=== PATIENT | female | born 1935 | race Caucasian/White ===

== ENCOUNTER 2021-02-27 16:49 | Emergency (ER) | payer MEDICARE, OTHER ==
--- NOTE | 2021-02-27 20:51 | CR ---
INDICATION: Pain in the ankle after near fall. COMPARISON: None available. FINDINGS: AP, lateral and oblique views of the left ankle were obtained for a total of three views. There is no sign of fracture or dislocation. The ankle mortise is intact. The talar dome is intact. There is no sign of a joint effusion. There is moderate medial and lateral soft tissue swelling along with mild anterior soft tissue swelling. There is a moderate plantar calcaneal spur. IMPRESSION: No sign of acute osseous injury. Moderate medial and lateral soft tissue swelling, along with mild anterior soft tissue swelling. Dictated by Jovan Hyde MD @ 02/27/2021 8:50:06 PM (Electronically Signed)
[2021-02-27] MEDS ORDERED: Sodium Chloride 0.9% 1,000 ML IV ONE (20:52)
[2021-02-27] MEDS ORDERED: Sodium Chloride 0.9% 10 ML Syringe FLUSH PRN (20:52)
[2021-02-27] MEDS ORDERED: Sodium Chloride 0.9% 2.5 ML Syringe FLUSH PRN (20:52)
--- NOTE | 2021-02-27 20:53 | EDM.PDOC ---
ED HPI GENERAL MEDICAL PROBLEM - General Chief Complaint: Lower Extremity Injury/Pain Stated Complaint: FALL YESTERDAY, ANKLE SWOLLEN Time Seen by Provider: 02/27/21 20:46 - History of Present Illness INITIAL COMMENTS - FREE TEXT/NARRATIVE: History of present illness: [] Patient had abdominal pain and felt sick at her stomach yesterday. She said she ate well. Today her appetite was gone and she did not eat hardly at all. Yesterday she fell and twisted her left ankle and has pain. Today she was so weak that her family had to come and help her get up. She did not have any focal weakness. She still felt a little indigestion and abdominal pain. When she fell yesterday she injured her ankle. She incidentally notes that for chronic time she has a feeling of a bone spur in her heel on the right. She did not want that addressed acutely tonight. Review of systems: As per history of present illness and below otherwise all systems reviewed and negative. Past medical history: As per history of present illness and as reviewed below otherwise noncontributory. Surgical history: As per history of present illness and as reviewed below otherwise noncontributory. Social history: No reported history of drug or alcohol abuse. Family history: As per history of present illness and as reviewed below otherwise noncontributory. Physical exam: Constitutional - well developed, well-nourished and in no acute distress HEENT - normocephalic, no evidence of trauma - external nose and mouth normal - no mass in neck and no JVD - mucosae moist EYES - full EOM, PERRL, no icterus - no evidence of inflammation, injection, or drainage Respiratory - no respiratory distress, equal bilateral expansion, lungs clear to auscultation and no abnormal lung sounds Cardiovascular - Regular Rhythm with S1 and S2 appreciated and no murmur, gallop or rub. GI - abdomen soft without distension or organomegaly - normal bowel sounds - no guard or rebound Musculoskeletal tenderness medial and lateral ankle on the left side. Otherwise no gross deformity of long bones or joints - no tenderness, swelling or edema Neurologic - Alert and oriented times four - CN II-XII grossly intact - motor sensory and coordination symmetrically normal Psychiatric - appropriate mood and affect with normal thought content Hematologic - No petechiae or purpura - mucosa appropriate color and sclera not pale - normal nail bed color and refill Integument - no rash or evidence of trauma - normal turgor Diagnostics: [] Therapeutics: [] Impression: [] Plan: [] Definitive disposition and diagnosis as appropriate pending reevaluation and review of above. Right Ankle Pain Score (Numeric/FACES): 9 - Related Data Allergies Allergy/AdvReac Type Severity Reaction Status Date / Time No Known Allergies Allergy Verified 02/27/21 17:02 Home Meds: Home Meds Aspirin 81 mg PO 02/27/21 [History] Diltiazem HCl [Diltiazem 24Hr Cd] 180 mg PO 02/27/21 [History] cephALEXin [Keflex] 500 mg PO BID 7 Days #14 cap 02/27/21 [Rx] hydroCHLOROthiazide [Hydrochlorothiazide] 25 mg PO DAILY 02/27/21 [History] Past Medical History - Past Health History Medical/Surgical History: Denies Medical/Surgical History Cardiovascular History: Reports: Hypertension - Infectious Disease History Infectious Disease History: Reports: Chicken Pox - Past Surgical History GI Surgical History: Reports: Appendectomy Social & Family History - Family History Family Medical History: No Pertinent Family History Review of Systems - Review of Systems Review Of Systems: Comprehensive ROS is negative, except as noted in HPI. ED EXAM, GENERAL - Physical Exam Exam: See Below Free Text/Narrative:: My physical exam is in the HPI #1 Interpretation EKG Interpretation Comments: EKG done 02/27/2021 at 9:18 PM shows sinus rhythm with a heart rate of 95 IL 176 QT 403 axis 53. Left atrial enlargement is suggested. There is an early transition R wave in the precordium. Nonspecific ST changes. No prior for comparison. Impression cannot rule out ischemia. Course - Vital Signs Last Recorded V/S: Last Vital Signs Temp 36.7 C 02/27/21 17:03 Pulse 91 02/27/21 22:07 Resp 18 02/27/21 22:07 BP 156/70 H 02/27/21 22:07 Pulse Ox 93 L 02/27/21 22:07 - Orders/Labs/Meds Orders: Active Orders 24 hr Category Date Time Status CULTURE URINE [MREF] Stat Lab 02/27/21 21:30 Received UA W/MICROSCOPIC [URIN] Stat Lab 02/27/21 21:30 Results DME for Discharge [COMM] Stat Oth 02/27/21 20:54 Ordered Saline Lock Insert [OM.PC] Stat Oth 02/27/21 20:52 Ordered Labs: Laboratory Tests 02/27/21 02/27/21 02/27/21 Range/Units 21:30 21:30 21:30 WBC 15.94 H (4.0-11.0) K/uL RBC 4.50 (4.30-5.90) M/uL Hgb 13.0 (12.0-16.0) g/dL Hct 38.8 (36.0-46.0) % MCV 86.2 (80.0-98.0) fL MCH 28.9 (27.0-32.0) pg MCHC 33.5 (31.0-37.0) g/dL RDW Std Deviation 41.1 (28.0-62.0) fl RDW Coeff of Cris 13 (11.0-15.0) % Plt Count 256 (150-400) K/uL MPV 9.80 (7.40-12.00) fL Neut % (Auto) 73.7 (48.0-80.0) % Lymph % (Auto) 15.4 L (16.0-40.0) % [place] % (Auto) 10.4 (0.0-15.0) % Eos % (Auto) 0.2 (0.0-7.0) % Baso % (Auto) 0.3 (0.0-1.5) % Neut # (Auto) 11.8 H (1.4-5.7) K/uL Lymph # (Auto) 2.5 H (0.6-2.4) K/uL [place] # (Auto) 1.7 H (0.0-0.8) K/uL Eos # (Auto) 0.0 (0.0-0.7) K/uL Baso # (Auto) 0.0 (0.0-0.1) K/uL Nucleated RBC % 0.0 /100WBC Nucleated RBCs # 0 K/uL Sodium 133 L (136-145) mmol/L Potassium 3.1 L (3.5-5.1) mmol/L Chloride 95 L (98-107) mmol/L Carbon Dioxide 27.2 (21.0-32.0) mmol/L BUN 29 H (7.0-18.0) mg/dL Creatinine 1.6 H (0.6-1.0) mg/dL Est Cr Clr Drug Dosing TNP Estimated GFR (MDRD) 30.6 ml/min Glucose 146 H (74-106) mg/dL Calcium 9.3 (8.5-10.1) mg/dL Total Bilirubin 0.5 (0.2-1.0) mg/dL AST 18 (15-37) IU/L ALT 21 (14-63) IU/L Alkaline Phosphatase 102 (46-116) U/L Troponin I < 0.050 (0.000-0.056) ng/mL Total Protein 8.6 H (6.4-8.2) g/dL Albumin 3.5 (3.4-5.0) g/dL Globulin 5.1 H (2.6-4.0) g/dL Albumin/Globulin Ratio 0.7 L (0.9-1.6) Urine Color YELLOW Urine Appearance SLT CLOUDY Urine pH 5.5 (5.0-8.0) Ur Specific [place] >= 1.030 (1.001-1.035) Urine Protein TRACE H (NEGATIVE) mg/dL Urine Glucose (UA) NEGATIVE (NEGATIVE) mg/dL Urine Ketones TRACE H (NEGATIVE) mg/dL Urine Occult Blood SMALL H (NEGATIVE) Urine Nitrite POSITIVE H (NEGATIVE) Urine Bilirubin NEGATIVE (NEGATIVE) Urine Urobilinogen 0.2 (<2.0) EU/dL Ur Leukocyte Esterase SMALL H (NEGATIVE) Meds: Medications Discontinued Medications Generic Name Dose Route Start Last Admin Trade Name Freq PRN Reason Stop Dose Admin Sodium Chloride 1,000 mls @ 999 mls/hr 02/27/21 20:52 02/27/21 21:39 Normal Saline IV 02/27/21 21:52 999 mls/hr .Bolus ONE Administration Ceftriaxone Sodium/Dextrose 1 50 mls @ 100 mls/hr 02/27/21 22:03 02/27/21 22:27 gm/ Premix IV 02/27/21 22:32 100 mls/hr ONETIME ONE Administration Sodium Chloride 10 ml 02/27/21 20:52 02/27/21 21:39 Sodium Chloride 0.9% 10 Ml Syringe FLUSH 10 ml ASDIRECTED PRN Administration Keep Vein Open Sodium Chloride 2.5 ml 02/27/21 20:52 02/27/21 21:39 Sodium Chloride 0.9% 2.5 Ml Syringe FLUSH 2.5 ml ASDIRECTED PRN Administration Keep Vein Open - Re-Assessments/Exams Free Text/Narrative Re-Assessment/Exam: 02/27/21 20:55 DME ordered-Hans wrap-this is different for the ligament injury-diagnosis is ankle sprain Departure - Departure Time of Disposition: 22:54 Disposition: Home, Self-Care 01 Condition: Good Clinical Impression: UTI (urinary tract infection), Weakness, Fall, Sprain of left ankle, Dehydration - Discharge Information Prescriptions: cephALEXin [Keflex] 500 mg PO BID 7 Days #14 cap Instructions: Fall Prevention in the Home, Adult, [id number], Ankle Sprain, [id number], Weakness, [id number], Urinary Tract Infection, Adult Referrals: Parish Colby MD [Primary Care Provider] - Forms: ED Department Discharge Additional Instructions: Your prescription went to in the pharmacy. Increase fluids. [facility] [address] [place] [address] [place] [address] The following information is given to patients seen in the emergency department who are being discharged to home. This information is to outline your options for follow-up care. We provide all patients seen in our emergency department with a follow-up referral. The need for follow-up, as well as the timing and circumstances, are variable depending upon the specifics of your emergency department visit. If you don't have a primary care physician on staff, we will provide you with a referral. We always advise you to contact your personal physician following an emergency department visit to inform them of the circumstance of the visit and for follow-up with them and/or the need for any referrals to a consulting specialist. The emergency department will also refer you to a specialist when appropriate. This referral assures that you have the opportunity for follow-up care with a specialist. All of these measure are taken in an effort to provide you with optimal care, which includes your follow-up. Under all circumstances we always encourage you to contact your private physician who remains a resource for coordinating your care. When calling for follow-up care, please make the office aware that this follow-up is from your recent emergency room visit. If for any reason you are refused follow-up, please contact the [facility] Emergency Department at and asked to speak to the emergency department charge nurse. Sepsis Event Note (ED) - Evaluation Sepsis Screening Result: No Definite Risk - Focused Exam Vital Signs: Vital Signs Temp Pulse Resp BP Pulse Ox 02/27/21 22:07 91 18 156/70 H 93 L 02/27/21 18:09 99 16 142/72 H 96 02/27/21 17:03 36.7 C 103 H 16 143/74 H 95 - My Orders Last 24 Hours: My Active Orders 02/27/21 20:52 Saline Lock Insert [OM.PC] Stat 02/27/21 20:54 DME for Discharge [COMM] Stat - Assessment/Plan Last 24 Hours: My Active Orders 02/27/21 20:52 Saline Lock Insert [OM.PC] Stat 02/27/21 20:54 DME for Discharge [COMM] Stat
[2021-02-27] MEDS ORDERED: cefTRIAXone 1 GM in Premix Bag 1 BAG IV ONE (22:03)
[2021-02-27 22:14] LABS: BLOOD UREA NITROGEN,BUN 29 mg/dL (7.0-18.0); CARBON DIOXIDE,CO2 27.2 mmol/L (21.0-32.0); CHLORIDE,CL 95 mmol/L (98-107); GLUCOSE RANDOM 146 mg/dL (74-106); POTASSIUM,K 3.1 mmol/L (3.5-5.1); SODIUM,NA 133 mmol/L (136-145)
== END 2021-02-27 22:55 | disposition home or self-care (01) ==
LOC: MW.ED 16:49
DX: S93.402A Sprain of unspecified ligament of left ankle, initial encounter (principal); E86.0 Dehydration; R53.1 Weakness; N39.0 Urinary tract infection, site not specified; I10 Essential (primary) hypertension; Z79.899 Other long term (current) drug therapy; X50.1XXA Overexertion from prolonged static or awkward postures, initial encounter
CPT/HCPCS: 36415; 73610; 80053; 81001; 84484; 85025; 87086; 93005; 96374; 99284; J0696; J7030; 87088; 87186